=== PATIENT | male | born 1985 | race Caucasian/White ===

== ENCOUNTER 2022-04-13 07:29 | Emergency (ER) | payer MEDICAID ==
[2022-04-13] MEDS ORDERED: Ketorolac Tromethamine 30 MG/ML VIAL ONE (08:06)
[2022-04-13] MEDS ORDERED: Acetaminophen 500 MG TAB ONE (08:07)
== END 2022-04-13 09:20 | disposition home or self-care (01) ==
LOC: CSHERS 07:29
DX: M25.511 Pain in right shoulder (principal)
CPT/HCPCS: 96372; J1885